=== PATIENT | male | born 1955 | race Caucasian/White ===

== ENCOUNTER 2017-11-06 19:49 | Inpatient (IN) | payer OTHER ==
[~2017-11-06] VITALS: Ht 188 cm; Wt 151.4 kg
[~2017-11-06 19:49] MED LIST: AMLODIPINE BESY10 MG PO; CEPHALEXIN500 MG PO; CLEOCIN300 MG PO; COUMADIN,JANTO7.5 MG PO; COUMADIN5 MG PO; Cipro PO; HTN MEDS; HYDROCHLOROTHIA25 MG PO; HYDROCODON-ACE1 EAC7 PO; IODOSORB40 GM TP; LISINOPRIL20 MG PO; LOPRESSOR100 MG; LOPRESSOR25 MG PO; LOVENOX120 MG/0.8 SC; LOVENOX150 MG/1 M SC; NOHOMEMEDS; SANTYL30 GM TP; UNABLEOBTAIN; VIBRAMYCIN100 M2 PO; XARELTO15 MG PO
[2017-11-06] MEDS ORDERED: LISINOPRIL30 MG PO (20:50)
[2017-11-06 21:09] LABS: ALBUMIN 4.1 g/dL (3.2-4.8); CHLORIDE 107 mEq/L (99-109); POTASSIUM 4.5 mEq/L (3.7-5.4); SODIUM 143 mEq/L (136-147)
[2017-11-06 21:10] LABS: BASOPHIL (%) 1.5 % (0-1); BASOPHIL COUNT 0.1 K/uL (0-0.1); EOSINOPHIL (%) 8.6 % (0-5); EOSINOPHIL COUNT 0.6 K/uL (0-0.3); HEMATOCRIT 41.8 % (38.0-50.0); HEMOGLOBIN 12.8 G/DL (12.5-16.6); IMMATURE GRANULOCYTE (%) 0.3 % (0.0-0.7); LYMPHOCYTE (%) 25.8 % (15-42); LYMPHOCYTE COUNT 1.8 K/uL (1.0-2.8); MCH 22.1 PG (29.0-34.0); MCHC 30.6 G/DL (30.0-36.0); MCV 72.1 FL (86-99); MONOCYTE (%) 8.6 % (3-12); MONOCYTE COUNT 0.6 K/uL (0-0.8); NEUTROPHIL (%) 55.2 % (45-76); NEUTROPHIL COUNT 3.8 K/uL (1.8-6.4); PLATELET COUNT 216 K/uL (156-360); RBC DIS.WIDTH-CV 20.6 % (11.8-14.6); RBC DIS.WIDTH-SD 50.4 % (39-53); WHITE BLOOD COUNT 6.9 K/uL (4.1-10.2)
[2017-11-06 21:11] LABS: GLUCOSE 91 mg/dL (70-99)
[2017-11-06 21:13] LABS: TOTAL BILIRUBIN 0.4 mg/dL (0.0-1.0)
[2017-11-06 21:14] LABS: SERUM ETHYL ALCOHOL 166 mg/dL
[2017-11-06 21:15] LABS: ALKALINE PHOSPHATASE 76 IU/L (3-129); CREATININE 0.8 mg/dL (0.6-1.3); GFR ESTIMATE (CALCULATED) > 59 mL/min/ (58.99-99999)
[2017-11-06 21:16] LABS: UREA NITROGEN (BUN) 8 mg/dL (9-23)
[2017-11-06 21:17] LABS: AST (GOT) 31 IU/L (2-34)
[2017-11-06 21:18] LABS: ALT (GPT) 27 IU/L (3-49); LIPASE 34 U/L (1.0-51.0)
[2017-11-06 21:29] LABS: APPEARANCE CLEAR ((CLEAR)); BILIRUBIN NEGATIVE; BLOOD NEGATIVE; COLOR COLORLESS ((YELLOW)); GLUCOSE (STRIP) NEGATIVE; KETONES NEGATIVE; LEUKOCYTES NEGATIVE; NITRITE NEGATIVE; PROTEIN (STRIP) 30; SPECIFIC GRAVITY 1.003 (1.000-1.030); UCUL ADDED? NO; UROBILINOGEN 0.2 MG/DL (0.2-1.0)
[2017-11-06 22:05] LABS: C-REACTIVE PROTEIN 3.1 MG/L (0-10)
[2017-11-07] VITALS (7 sets, daily range): BP systolic 119–190; BP diastolic 60–114
[2017-11-07 03:16] LABS: MAGNESIUM 2.4 mg/dl (1.3-2.7)
[2017-11-07 06:45] LABS: BASOPHIL (%) 0.9 % (0-1); BASOPHIL COUNT 0.1 K/uL (0-0.1); EOSINOPHIL (%) 6.5 % (0-5); EOSINOPHIL COUNT 0.6 K/uL (0-0.3); HEMATOCRIT 38.3 % (38.0-50.0); HEMOGLOBIN 11.5 G/DL (12.5-16.6); IMMATURE GRANULOCYTE (%) 0.2 % (0.0-0.7); LYMPHOCYTE (%) 14.3 % (15-42); LYMPHOCYTE COUNT 1.3 K/uL (1.0-2.8); MCH 21.7 PG (29.0-34.0); MCV 72.4 FL (86-99); MONOCYTE (%) 8.5 % (3-12); MONOCYTE COUNT 0.8 K/uL (0-0.8); NEUTROPHIL (%) 69.6 % (45-76); NEUTROPHIL COUNT 6.5 K/uL (1.8-6.4); PLATELET COUNT 186 K/uL (156-360); RBC DIS.WIDTH-CV 20.5 % (11.8-14.6); RBC DIS.WIDTH-SD 51.4 % (39-53); RED BLOOD COUNT 5.29 M/uL (4.00-5.50); WHITE BLOOD COUNT 9.3 K/uL (4.1-10.2)
[2017-11-07 06:57] LABS: CHLORIDE 107 MEQ/L (99-109); CREATININE 0.8 MG/DL (0.6-1.3); GFR ESTIMATE (CALCULATED) > 59 mL/min/ (58.99-99999); GLUCOSE 87 mg/dL (70-99); POTASSIUM 4.4 MEQ/L (3.7-5.4); SODIUM 142 MEQ/L (136-147); UREA NITROGEN (BUN) 9 mg/dL (9-23)
[2017-11-08 07:38] VITALS: BP 136/79
[2017-11-08 16:42] VITALS: BP 117/58
[2017-11-08 22:48] VITALS: BP 154/85
[2017-11-09 06:38] LABS: CHLORIDE 103 MEQ/L (99-109); CREATININE 0.9 MG/DL (0.6-1.3); GFR ESTIMATE (CALCULATED) > 59 mL/min/ (58.99-99999); GLUCOSE 92 mg/dL (70-99); SODIUM 141 MEQ/L (136-147); UREA NITROGEN (BUN) 14 mg/dL (9-23)
[2017-11-09 06:52] LABS: HEMATOCRIT 38.9 % (38.0-50.0); HEMOGLOBIN 11.5 G/DL (12.5-16.6); MCH 21.8 PG (29.0-34.0); MCHC 29.6 G/DL (30.0-36.0); MCV 73.8 FL (86-99); PLATELET COUNT 172 K/uL (156-360); RBC DIS.WIDTH-CV 20.6 % (11.8-14.6); RED BLOOD COUNT 5.27 M/uL (4.00-5.50); WHITE BLOOD COUNT 6.4 K/uL (4.1-10.2)
[2017-11-09 07:35] VITALS: BP 137/83
[2017-11-09] MEDS ORDERED: NICOTINE PATCH1 EAC2 TD (09:59)
[2017-11-09] MEDS ORDERED: XARELTO15 MG PO (10:00)
[2017-11-09] MEDS ORDERED: HYDROCHLOROTH12.5 M3 PO (10:02)
[2017-11-09] MEDS ORDERED: Thiamine,Vitamin B1 PO (10:02)
[2017-11-09] MEDS ORDERED: LOSARTAN POTAS100 MG PO (10:02)
[2017-11-09] MEDS ORDERED: XARELTO20 MG PO (10:02)
[2017-11-09] MEDS ORDERED: FOLIC ACID1 MG PO (10:02)
[2017-11-09] MEDS ORDERED: THERAGRAN1 TABLET PO (10:03)
[2017-11-09] MEDS ORDERED: CEPHALEXIN500 MG PO (10:03)
== END 2017-11-09 16:35 | disposition home health service (06) | DRG 571 ==
LOC: EME 19:49 → 5EAST 23:07 → EDOF 23:07 → ENRESERV 23:10 → 5EAST 11-07 00:37
PROVIDERS: Emergency Medicine; Internal Medicine; Physician Assistant
PROC: 0JBP0ZZ Excision of Left Lower Leg Subcutaneous Tissue and Fascia, Open Approach (ICD-10-PCS; principal; 2017-11-07)
DX: L03.116 Cellulitis of left lower limb (principal); B96.20 Unspecified Escherichia coli [E. coli] as the cause of diseases classified elsewhere; B95.61 Methicillin susceptible Staphylococcus aureus infection as the cause of diseases classified elsewhere; B95.4 Other streptococcus as the cause of diseases classified elsewhere; I82.412 Acute embolism and thrombosis of left femoral vein; I82.432 Acute embolism and thrombosis of left popliteal vein; I87.2 Venous insufficiency (chronic) (peripheral); L97.821 Non-pressure chronic ulcer of other part of left lower leg limited to breakdown of skin; L97.819 Non-pressure chronic ulcer of other part of right lower leg with unspecified severity; E87.2 Acidosis; I87.8 Other specified disorders of veins; I73.9 Peripheral vascular disease, unspecified; I10 Essential (primary) hypertension; E66.01 Morbid (severe) obesity due to excess calories; Z68.41 Body mass index [BMI] 40.0-44.9, adult; F10.129 Alcohol abuse with intoxication, unspecified; Y90.6 Blood alcohol level of 120-199 mg/100 ml; F79 Unspecified intellectual disabilities; J45.909 Unspecified asthma, uncomplicated; K21.9 Gastro-esophageal reflux disease without esophagitis; I25.2 Old myocardial infarction; G89.29 Other chronic pain; F32.9 Major depressive disorder, single episode, unspecified; F17.210 Nicotine dependence, cigarettes, uncomplicated; Z91.14 Patient's other noncompliance with medication regimen; Z91.19 Patient's noncompliance with other medical treatment and regimen; Z86.14 Personal history of Methicillin resistant Staphylococcus aureus infection; Z86.718 Personal history of other venous thrombosis and embolism; Z91.041 Radiographic dye allergy status; Z60.2 Problems related to living alone; Z56.0 Unemployment, unspecified; Z82.3 Family history of stroke
CPT/HCPCS: 73700; 80048; 80053; 80202; 81003; 83605; 83690; 83735; 83880; 85025; 85027; 85651; 86140; 87040; 87070; 87075; 87077; 87147; 87186; 87205; 93970; 99281; 99285; G0480; J0295; J0692; J0696; J3370; J7030; J7050

== ENCOUNTER 2017-11-25 22:43 | Emergency (ER) | payer OTHER ==
[~2017-11-25] VITALS: Ht 188 cm; Wt 138.0 kg
[~2017-11-25 22:43] MED LIST changes: +FOLIC ACID1 MG PO; +HYDROCHLOROTH12.5 M3 PO; +LISINOPRIL30 MG PO; +LOSARTAN POTAS100 MG PO; +NICOTINE PATCH1 EAC2 TD; +THERAGRAN1 TABLET PO; +Thiamine,Vitamin B1 PO; +XARELTO20 MG PO
[2017-11-26 00:01] LABS: HEMATOCRIT 39.7 % (38.0-50.0); HEMOGLOBIN 12.5 G/DL (12.5-16.6); MCHC 31.5 G/DL (30.0-36.0); PLATELET COUNT 220 K/uL (156-360); RBC DIS.WIDTH-CV 19.9 % (11.8-14.6); RBC DIS.WIDTH-SD 51.4 % (39-53); RED BLOOD COUNT 5.44 M/uL (4.00-5.50); WHITE BLOOD COUNT 7.8 K/uL (4.1-10.2)
[2017-11-26 00:12] LABS: CHLORIDE 106 mEq/L (99-109); SODIUM 139 mEq/L (136-147)
[2017-11-26 00:13] LABS: GLUCOSE 104 mg/dL (70-99)
[2017-11-26 00:17] LABS: CREATININE 1.1 mg/dL (0.6-1.3); GFR ESTIMATE (CALCULATED) > 59 mL/min/ (58.99-99999)
[2017-11-26 00:18] LABS: UREA NITROGEN (BUN) 14 mg/dL (9-23)
[2017-11-26 02:30] LABS: APPEARANCE CLEAR ((CLEAR)); BILIRUBIN NEGATIVE; BLOOD NEGATIVE; COLOR YELLOW ((YELLOW)); GLUCOSE (STRIP) NEGATIVE; KETONES NEGATIVE; LEUKOCYTES NEGATIVE; NITRITE NEGATIVE; PROTEIN (STRIP) NEGATIVE; SPECIFIC GRAVITY 1.011 (1.000-1.030); UCUL ADDED? NO; UROBILINOGEN 0.2 MG/DL (0.2-1.0)
[2017-11-26 02:57] VITALS: BP 160/67
== END 2017-11-26 03:31 | disposition home or self-care (01) ==
LOC: EME 22:43
PROVIDERS: Emergency Medicine
PROC: 0T9B70Z Drainage of Bladder with Drainage Device, Via Natural or Artificial Opening (ICD-10-PCS; principal; 2017-11-25)
DX: R33.9 Retention of urine, unspecified (principal); R30.0 Dysuria; Z87.440 Personal history of urinary (tract) infections; I10 Essential (primary) hypertension; K21.9 Gastro-esophageal reflux disease without esophagitis; J45.909 Unspecified asthma, uncomplicated; I25.2 Old myocardial infarction; F32.9 Major depressive disorder, single episode, unspecified; Z86.14 Personal history of Methicillin resistant Staphylococcus aureus infection; Z86.718 Personal history of other venous thrombosis and embolism; Z90.49 Acquired absence of other specified parts of digestive tract; Z91.041 Radiographic dye allergy status; Z88.8 Allergy status to other drugs, medicaments and biological substances
CPT/HCPCS: 80048; 81003; 85027; 99281; 99284

== ENCOUNTER 2017-12-10 16:00 | Emergency (ER) | payer OTHER ==
[~2017-12-10] VITALS: Ht 188 cm; Wt 136.9 kg
[2017-12-10 16:57] VITALS: BP 160/76
== END 2017-12-10 16:57 | disposition home or self-care (01) ==
LOC: EME 16:00
DX: L30.9 Dermatitis, unspecified (principal); F32.9 Major depressive disorder, single episode, unspecified; I10 Essential (primary) hypertension; N40.0 Benign prostatic hyperplasia without lower urinary tract symptoms; I25.2 Old myocardial infarction; J45.909 Unspecified asthma, uncomplicated; K21.9 Gastro-esophageal reflux disease without esophagitis; Z86.718 Personal history of other venous thrombosis and embolism; Z86.14 Personal history of Methicillin resistant Staphylococcus aureus infection
CPT/HCPCS: 99281; 99284

== ENCOUNTER 2017-12-12 11:33 | Observation (INO) | payer OTHER ==
[~2017-12-12] VITALS: Ht 188 cm; Wt 136.5 kg
[2017-12-12 12:52] LABS: INTER. NORMALIZED RATIO 3.4
[2017-12-12 12:53] LABS: BASOPHIL (%) 0.7 % (0-1); BASOPHIL COUNT 0.1 K/uL (0-0.1); EOSINOPHIL (%) 0.4 % (0-5); HEMATOCRIT 36.9 % (38.0-50.0); HEMOGLOBIN 11.5 G/DL (12.5-16.6); IMMATURE GRANULOCYTE (%) 0.3 % (0.0-0.7); LYMPHOCYTE (%) 12.1 % (15-42); LYMPHOCYTE COUNT 0.9 K/uL (1.0-2.8); MCHC 31.2 G/DL (30.0-36.0); MCV 73.8 FL (86-99); MONOCYTE (%) 4.6 % (3-12); MONOCYTE COUNT 0.3 K/uL (0-0.8); NEUTROPHIL (%) 81.9 % (45-76); NEUTROPHIL COUNT 5.9 K/uL (1.8-6.4); PLATELET COUNT 171 K/uL (156-360); RBC DIS.WIDTH-CV 19.3 % (11.8-14.6); RBC DIS.WIDTH-SD 51.6 % (39-53); WHITE BLOOD COUNT 7.3 K/uL (4.1-10.2)
[2017-12-12 12:55] LABS: PTT 40.5 SEC (25-37)
[2017-12-12 12:59] LABS: ALBUMIN 3.6 g/dL (3.2-4.8); CHLORIDE 106 mEq/L (99-109); POTASSIUM 3.5 mEq/L (3.7-5.4); SODIUM 138 mEq/L (136-147)
[2017-12-12 13:02] LABS: GLUCOSE 156 mg/dL (70-99); TOTAL PROTEIN 6.7 g/dL (6.4-8.3)
[2017-12-12 13:03] LABS: TOTAL BILIRUBIN 0.6 mg/dL (0.0-1.0)
[2017-12-12 13:05] LABS: CREATININE 1.2 mg/dL (0.6-1.3); GFR ESTIMATE (CALCULATED) > 59 mL/min/ (58.99-99999); SERUM ETHYL ALCOHOL < 10 mg/dL
[2017-12-12 13:06] LABS: ALKALINE PHOSPHATASE 58 IU/L (3-129)
[2017-12-12 13:07] LABS: AST (GOT) 18 IU/L (2-34); DIRECT BILIRUBIN 0.2 mg/dL (0.0-0.3); UREA NITROGEN (BUN) 11 mg/dL (9-23)
[2017-12-12 13:09] LABS: ACETAMINOPHEN (TYLENOL) < 10 mcg/mL (10-30); ALT (GPT) 26 IU/L (3-49); SALICYLATE < 5.0 MG/DL (15-30)
[2017-12-12] MEDS ORDERED: TAMSULOSIN HCL0.4 MG PO (14:16)
[2017-12-12] MEDS ORDERED: XARELTO20 MG PO (14:17)
[2017-12-12 14:42] LABS: APPEARANCE CLEAR ((CLEAR)); BILIRUBIN NEGATIVE; BLOOD NEGATIVE; COLOR STRAW ((YELLOW)); GLUCOSE (STRIP) NEGATIVE; KETONES NEGATIVE; LEUKOCYTES NEGATIVE; NITRITE NEGATIVE; PROTEIN (STRIP) NEGATIVE; SPECIFIC GRAVITY 1.005 (1.000-1.030)
[2017-12-12 14:56] LABS: AMPHETAMINE NEGATIVE (500 ng/mL); BARBITURATES NEGATIVE (200 ng/mL); BENZODIAZEPINES NEGATIVE (150 ng/mL); BUPRENORPHINE NEGATIVE (10 ng/mL); COCAINE NEGATIVE (150 ng/mL); METHADONE NEGATIVE (200 ng/mL); METHAMPHETAMINE NEGATIVE (500 ng/mL); OPIATES (MORPHINE) NEGATIVE (100 ng/mL); OXYCODONE NEGATIVE (100 ng/mL); PHENCYCLIDINE NEGATIVE (25 ng/mL); PROPOXYPHENE NEGATIVE (300 ng/mL); THC CANNABINOIDS NEGATIVE (50 ng/mL); TRICYCLIC ANTIDEPRESSANTS NEGATIVE (300 ng/mL)
[2017-12-12 16:48] VITALS: BP 163/97
[2017-12-12 19:58] VITALS: BP 139/75
[2017-12-12 23:52] VITALS: BP 125/72
[2017-12-13 04:03] VITALS: BP 110/69
[2017-12-13 05:48] LABS: HEMATOCRIT 37.3 % (38.0-50.0); HEMOGLOBIN 11.1 G/DL (12.5-16.6); MCH 22.2 PG (29.0-34.0); MCHC 29.8 G/DL (30.0-36.0); MCV 74.6 FL (86-99); PLATELET COUNT 176 K/uL (156-360); RBC DIS.WIDTH-CV 19.8 % (11.8-14.6); RBC DIS.WIDTH-SD 52.9 % (39-53); WHITE BLOOD COUNT 6.8 K/uL (4.1-10.2)
[2017-12-13 06:13] LABS: PTT 29.3 SEC (25-37)
[2017-12-13 06:14] LABS: ALBUMIN 3.6 G/DL (3.2-4.8); ALKALINE PHOSPHATASE 49 IU/L (3-129); ALT (GPT) 19 IU/L (3-49); AST (GOT) 17 IU/L (2-34); CHLORIDE 109 MEQ/L (99-109); GFR ESTIMATE (CALCULATED) > 59 mL/min/ (58.99-99999); POTASSIUM 3.9 MEQ/L (3.7-5.4); SODIUM 142 MEQ/L (136-147); TOTAL BILIRUBIN 0.6 MG/DL (0.0-1.0); TOTAL PROTEIN 6.2 G/DL (6.4-8.3); UREA NITROGEN (BUN) 9 mg/dL (9-23)
[2017-12-13 06:21] LABS: INTER. NORMALIZED RATIO 1.2
[2017-12-13 06:24] LABS: GLUCOSE 85 mg/dL (70-99)
[2017-12-13 07:49] VITALS: BP 146/82
[2017-12-13 11:52] VITALS: BP 167/79
[2017-12-13 15:19] VITALS: BP 158/70
[2017-12-13 19:00] VITALS: BP 117/56
[2017-12-14 08:20] VITALS: BP 138/76
[2017-12-14 11:30] VITALS: BP 88/54
[2017-12-14 14:23] VITALS: BP 128/68
[2017-12-14 17:02] VITALS: BP 168/81
[2017-12-14 18:09] LABS: HEMATOCRIT 40.1 % (38.0-50.0); HEMOGLOBIN 12.1 G/DL (12.5-16.6)
[2017-12-14 20:06] VITALS: BP 141/63
[2017-12-14 23:51] VITALS: BP 138/66
[2017-12-15 04:41] VITALS: BP 148/72
[2017-12-15 07:08] VITALS: BP 154/81
[2017-12-15 12:04] VITALS: BP 153/72
[2017-12-15 20:00] VITALS: BP 153/70
[2017-12-16 00:05] VITALS: BP 157/73
[2017-12-16 04:20] VITALS: BP 140/76
[2017-12-16 08:30] VITALS: BP 172/100
[2017-12-16 11:11] VITALS: BP 124/62
== END 2017-12-16 13:58 ==
LOC: EME 11:33 → 4SOUTH 13:55 → EDOF 13:55 → ENRESERV 13:55 → EDOF 13:55 → ENRESERV 14:07 → EDOF 15:07 → 4SOUTH 15:10 → ENRESERV 12-16 11:52 → 4SOUTH 12-16 13:58 → ENRESERV 12-16 14:00 → CANRESERV 12-16 14:00
PROVIDERS: Emergency Medicine; Internal Medicine
DX: T45.512A Poisoning by anticoagulants, intentional self-harm, initial encounter (principal); R45.851 Suicidal ideations; F33.2 Major depressive disorder, recurrent severe without psychotic features; I95.9 Hypotension, unspecified; I87.8 Other specified disorders of veins; Z86.718 Personal history of other venous thrombosis and embolism; I73.9 Peripheral vascular disease, unspecified; F79 Unspecified intellectual disabilities; I10 Essential (primary) hypertension; J45.909 Unspecified asthma, uncomplicated; I25.10 Atherosclerotic heart disease of native coronary artery without angina pectoris; I25.2 Old myocardial infarction; K21.9 Gastro-esophageal reflux disease without esophagitis; F10.10 Alcohol abuse, uncomplicated; Z87.19 Personal history of other diseases of the digestive system; Z86.14 Personal history of Methicillin resistant Staphylococcus aureus infection; G89.29 Other chronic pain; L97.822 Non-pressure chronic ulcer of other part of left lower leg with fat layer exposed; E87.6 Hypokalemia; Z87.891 Personal history of nicotine dependence
CPT/HCPCS: 80048; 80053; 80076; 81003; 85014; 85018; 85025; 85027; 85610; 85730; 93005; 99281; 99285; G0378; G0480; J1650; J7030

== ENCOUNTER 2017-12-16 13:00 | Inpatient (IN) | payer OTHER ==
[~2017-12-16] VITALS: Ht 188 cm; Wt 136.5 kg
[~2017-12-16 13:00] MED LIST changes: +TAMSULOSIN HCL0.4 MG PO
[2017-12-16 14:41] VITALS: BP 155/76
[2017-12-16 16:19] VITALS: BP 105/56
[2017-12-17 08:04] VITALS: BP 126/57
[2017-12-17 16:45] VITALS: BP 98/53
[2017-12-18 07:53] VITALS: BP 151/90
[2017-12-18] MEDS ORDERED: ESCITALOPRAM OX10 MG PO (09:06)
== END 2017-12-18 13:15 | disposition home or self-care (01) | DRG 885 ==
LOC: 1WEST 13:00 → ENRESERV 14:09 → 1WEST 14:10
DX: F33.2 Major depressive disorder, recurrent severe without psychotic features (principal); I87.8 Other specified disorders of veins; G62.9 Polyneuropathy, unspecified; F10.21 Alcohol dependence, in remission; E66.9 Obesity, unspecified; Z68.38 Body mass index [BMI] 38.0-38.9, adult